=== PATIENT | male | born 1990 | race Caucasian/White ===

== ENCOUNTER 2025-10-10 03:39 | Emergency (ER) | payer BC, MEDICAID ==
[~2025-10-10] VITALS: Ht 170.2 cm; Wt 68.0 kg
[2025-10-10 05:49] LABS: PLATELET COUNT (AUTO) 293 K/uL (150-450); RED BLOOD CELL COUNT(AUTO) 4.96 MIL/uL (4.5-6.0); RED CELL DISTRIBUTION WIDTH 12.8 % (11.5-15.0); WHITE BLOOD COUNT (AUTO) 7.9 K/uL (4.3-11.0)
[2025-10-10 06:03] LABS: CALCIUM, SERUM 8.9 mg/dL (8.5-10.1); CREATININE 0.8 mg/dL (0.6-1.3); SODIUM SERUM 142 mmol/L (136-145); UREA NITROGEN, BLOOD 16 mg/dL (7-18)
[2025-10-10 06:13] LABS: ASPARTATE AMINOTRANSFERASE 20 U/L (15-37); TOTAL PROTEIN, SERUM 7.8 g/dL (6.4-8.2)
[2025-10-10 07:13] VITALS: BP 120/67; TEMP 98.2; O2SAT 97
== END 2025-10-10 07:14 | disposition home or self-care (01) ==
LOC: ER 03:45
DX: S09.90XA Unspecified injury of head, initial encounter (principal); R55 Syncope and collapse; R06.02 Shortness of breath; W06.XXXA Fall from bed, initial encounter; Y93.89 Activity, other specified; Y92.89 Other specified places as the place of occurrence of the external cause; Y99.9 Unspecified external cause status
CPT/HCPCS: 36415; 70450-TC; 71045-TC; 80048-TC; 80076-TC; 82962-TC; 83880; 84484-TC; 85025-TC